=== PATIENT | male | born 1940 | race Caucasian/White ===

== ENCOUNTER 2023-02-19 22:30 | Emergency (ER) | payer MEDICARE, OTHER ==
[~2023-02-19] VITALS: Ht 180.3 cm; Wt 86.2 kg
[2023-02-19 23:55] LABS: BASOPHILS # (AUTO) 0.1 K/uL (0.0-0.2); BASOPHILS % (AUTO) 0.9 % (0.0-2.0); EOSINOPHILS # (AUTO) 0.3 K/uL (0.0-0.7); EOSINOPHILS % (AUTO) 5.4 % (0.0-6.0); HEMATOCRIT 34 % (39-51); HEMOGLOBIN 11.4 g/dL (13.5-17.5); LYMPHOCYTES # (AUTO) 0.9 K/uL (0.8-4.8); LYMPHOCYTES % (AUTO) 14.6 % (20.0-44.0); MEAN CORPUSCULAR HEMOGLOBIN 31 PG (26.0-33.0); MEAN CORPUSCULAR HGB CONC 33 g/dl (31.0-36.0); MEAN CORPUSCULAR VOLUME 94 fL (80-96); MONOCYTES # (AUTO) 0.7 K/uL (0.1-1.30); MONOCYTES % (AUTO) 10.7 % (2.0-12.0); NEUTROPHILS # (AUTO) 4.4 K/uL (1.8-8.9); NEUTROPHILS % (AUTO) 68.4 % (43.0-81.0); PLATELET COUNT (AUTO) 169 K/uL (150-450); RED BLOOD CELL COUNT(AUTO) 3.64 MIL/uL (4.5-6.0); RED CELL DISTRIBUTION WIDTH 13.5 % (11.5-15.0); WHITE BLOOD COUNT (AUTO) 6.4 K/uL (4.3-11.0)
[2023-02-20 00:07] LABS: CALCIUM, SERUM 9.1 mg/dL (8.5-10.1); CARBON DIOXIDE 32 mmol/L (21-32); CHLORIDE 102 mmol/L (98-107); CREATININE 1.5 mg/dL (0.6-1.3); GLUCOSE 148 mg/dL (74-106); SODIUM SERUM 139 mmol/L (136-145); UREA NITROGEN, BLOOD 25 mg/dL (7-18)
[2023-02-20 00:27] LABS: ALANINE AMINOTRANSFERASE 28 U/L (12-78); ALBUMIN 3.1 g/dL (3.4-5.0); ALKALINE PHOSPHATASE 95 U/L (46-116); ASPARTATE AMINOTRANSFERASE 37 U/L (15-37); BILIRUBIN,DIRECT 0.2 mg/dL (0.0-0.2); BILIRUBIN,TOTAL 0.6 mg/dL (0.2-1.0); TOTAL PROTEIN, SERUM 6.9 g/dL (6.4-8.2)
[2023-02-20 02:02] LABS: APPEARANCE,URINE CLEAR (CLEAR); BILIRUBIN,URINE NEGATIVE (NEGATIVE); BLOOD, URINE NEGATIVE Ery/uL (NEGATIVE); COLOR,URINE YELLOW (YELLOW); KETONES,URINE NEGATIVE (NEGATIVE); LEUKOCYTE ESTERASE ,URINE NEGATIVE (NEGATIVE); NITRITE, URINE NEGATIVE (NEGATIVE); PH,URINE 5.5 (5.0-8.0); PROTEIN,URINE NEGATIVE (NEGATIVE); UGLUCOSE NEGATIVE (NEGATIVE); UROBILINOGEN,URINE 0.2 EU/dL (0.2)
[2023-02-20 03:13] VITALS: BP 95/69; TEMP 97.8; O2SAT 94
[2023-02-21] MEDS ORDERED: PANT40TA49 PO (10:57)
[2023-02-21] MEDS ORDERED: ACET-2605 PO (10:57)
[2023-02-21] MEDS ORDERED: METF-440 PO (10:57)
[2023-02-21] MEDS ORDERED: FERR325T24 PO (10:57)
[2023-02-21] MEDS ORDERED: PREG300C PO (10:57)
[2023-02-21] MEDS ORDERED: FURO-144 PO (10:57)
[2023-02-21] MEDS ORDERED: ROSU5TAB PO (10:57)
[2023-02-21] MEDS ORDERED: METH10TA2 PO (10:57)
[2023-02-21] MEDS ORDERED: CYAN500T64 PO (10:57)
[2023-02-21] MEDS ORDERED: POTA20TA10 PO (10:57)
[2023-02-21] MEDS ORDERED: LISI2.5T2 PO (10:57)
[2023-02-21] MEDS ORDERED: LIDO30AD10 TD (10:57)
[2023-02-21] MEDS ORDERED: ZOLP5TAB2 PO (10:57)
[2023-02-21] MEDS ORDERED: CHOL200074 PO (10:57)
[2023-02-21] MEDS ORDERED: TAMS-12 PO (10:57)
[2023-02-21] MEDS ORDERED: DULO60CA45 PO (10:57)
== END 2023-02-20 03:18 | disposition home or self-care (01) ==
LOC: ER 22:45
DX: R29.6 Repeated falls (principal); I10 Essential (primary) hypertension; K21.9 Gastro-esophageal reflux disease without esophagitis; E11.9 Type 2 diabetes mellitus without complications; Z88.2 Allergy status to sulfonamides; Z88.8 Allergy status to other drugs, medicaments and biological substances
CPT/HCPCS: 36415; 70450-TC; 71045-TC; 72125-TC; 80048-TC; 80076-TC; 84484-TC; 85025-TC

== ENCOUNTER 2023-02-21 09:55 | Inpatient (IN) | payer MEDICARE, OTHER ==
[~2023-02-21] VITALS: Ht 180.3 cm; Wt 83.7 kg
[2023-02-21 10:54] LABS: BASOPHILS # (AUTO) 0.1 K/uL (0.0-0.2); BASOPHILS % (AUTO) 0.7 % (0.0-2.0); EOSINOPHILS # (AUTO) 0.3 K/uL (0.0-0.7); EOSINOPHILS % (AUTO) 3.5 % (0.0-6.0); HEMATOCRIT 36 % (39-51); HEMOGLOBIN 12.1 g/dL (13.5-17.5); LYMPHOCYTES % (AUTO) 12.5 % (20.0-44.0); MEAN CORPUSCULAR HEMOGLOBIN 31 PG (26.0-33.0); MEAN CORPUSCULAR HGB CONC 34 g/dl (31.0-36.0); MEAN CORPUSCULAR VOLUME 92 fL (80-96); MONOCYTES # (AUTO) 0.8 K/uL (0.1-1.30); MONOCYTES % (AUTO) 10.8 % (2.0-12.0); NEUTROPHILS # (AUTO) 5.6 K/uL (1.8-8.9); NEUTROPHILS % (AUTO) 72.5 % (43.0-81.0); PLATELET COUNT (AUTO) 170 K/uL (150-450); RED BLOOD CELL COUNT(AUTO) 3.89 MIL/uL (4.5-6.0); RED CELL DISTRIBUTION WIDTH 13.1 % (11.5-15.0); WHITE BLOOD COUNT (AUTO) 7.8 K/uL (4.3-11.0)
[2023-02-21] MEDS ORDERED: CYAN500T64 PO (10:57)
[2023-02-21] MEDS ORDERED: TAMS-12 PO (10:57)
[2023-02-21] MEDS ORDERED: CHOL200074 PO (10:57)
[2023-02-21] MEDS ORDERED: POTA20TA10 PO (10:57)
[2023-02-21] MEDS ORDERED: METF-440 PO (10:57)
[2023-02-21] MEDS ORDERED: PREG300C PO (10:57)
[2023-02-21] MEDS ORDERED: FURO-144 PO (10:57)
[2023-02-21] MEDS ORDERED: PANT40TA49 PO (10:57)
[2023-02-21] MEDS ORDERED: ACET-2605 PO (10:57)
[2023-02-21] MEDS ORDERED: LISI2.5T2 PO (10:57)
[2023-02-21] MEDS ORDERED: ZOLP5TAB2 PO (10:57)
[2023-02-21] MEDS ORDERED: LIDO30AD10 TD (10:57)
[2023-02-21] MEDS ORDERED: DULO60CA45 PO (10:57)
[2023-02-21] MEDS ORDERED: FERR325T24 PO (10:57)
[2023-02-21] MEDS ORDERED: ROSU5TAB PO (10:57)
[2023-02-21] MEDS ORDERED: METH10TA2 PO (10:57)
[2023-02-21 11:13] LABS: INR 1.14 (0.91-1.10); PARTIAL THROMBOPLASTIN TIME 31.5 SEC (24.3-34.3); PROTHROMBIN TIME 11.9 SECS (9.2-11.1)
[2023-02-21 11:14] LABS: ALANINE AMINOTRANSFERASE 28 U/L (12-78); ALBUMIN 3.3 g/dL (3.4-5.0); ALKALINE PHOSPHATASE 104 U/L (46-116); ASPARTATE AMINOTRANSFERASE 32 U/L (15-37); BILIRUBIN,DIRECT 0.2 mg/dL (0.0-0.2); BILIRUBIN,TOTAL 0.7 mg/dL (0.2-1.0); CALCIUM, SERUM 9.7 mg/dL (8.5-10.1); CARBON DIOXIDE 32 mmol/L (21-32); CHLORIDE 100 mmol/L (98-107); CREATININE 1.3 mg/dL (0.6-1.3); GLUCOSE 158 mg/dL (74-106); SODIUM SERUM 140 mmol/L (136-145); TOTAL PROTEIN, SERUM 7.4 g/dL (6.4-8.2); UREA NITROGEN, BLOOD 18 mg/dL (7-18)
[2023-02-21 13:16] LABS: APPEARANCE,URINE CLEAR (CLEAR); BILIRUBIN,URINE NEGATIVE (NEGATIVE); BLOOD, URINE NEGATIVE Ery/uL (NEGATIVE); COLOR,URINE YELLOW (YELLOW); KETONES,URINE NEGATIVE (NEGATIVE); LEUKOCYTE ESTERASE ,URINE NEGATIVE (NEGATIVE); NITRITE, URINE NEGATIVE (NEGATIVE); PROTEIN,URINE NEGATIVE (NEGATIVE); UGLUCOSE NEGATIVE (NEGATIVE); UROBILINOGEN,URINE 0.2 EU/dL (0.2)
[2023-02-21] MEDS ORDERED: TDAP [DIPH/PERTUSSIS/TET] 0.5 ML VIAL IM ONE ×2 (13:37→14:00)
[2023-02-21] MEDS ORDERED: MAGNESIUM HYDROXIDE 30 ML UDC PO PRN (14:30)
[2023-02-21] MEDS ORDERED: Z GUARD REMEDY 4 OZ OINT TP PRN (14:30)
[2023-02-21] MEDS ORDERED: ZOLPIDEM TARTRATE 5 MG TABLET PO PRN (14:30)
[2023-02-21] MEDS ORDERED: ONDANSETRON HCL/PF 4 MG/2 ML VIAL IVP PRN (14:30)
[2023-02-21] MEDS ORDERED: MAG HYDROX/AL HYDROX/SIMETH 30 ML UDC PO PRN (14:30)
[2023-02-21 16:00] VITALS: BP 144/81; TEMP 98.1; O2SAT 94
[2023-02-21] MEDS: PREGABALIN 100 MG CAPSULE PO SCH (17:57)
[2023-02-21] MEDS: METHADONE HCL 10 MG TABLET PO SCH (17:58)
[2023-02-21 20:00] VITALS: BP 124/74; TEMP 97.9; O2SAT 96
[2023-02-21] MEDS ORDERED: DEXTROSE 50%-WATER 50 ML DISP.SYRIN IV PRN (21:00)
[2023-02-21] MEDS: ZOLPIDEM TARTRATE 5 MG TABLET PO SCH (21:49)
[2023-02-21] MEDS: TAMSULOSIN 0.4 MG CAP.SR.24H PO SCH (21:49)
[2023-02-21] MEDS: BLOOD SUGAR DIAGNOSTIC 1 EACH STRIP IN SCH (21:49)
[2023-02-21] MEDS: INSULIN REGULAR, HUMAN 100 UNIT/ML 3 ML VIAL SQ PRN (21:58)
[2023-02-22] MEDS: ACETAMINOPHEN 325 MG TABLET PO PRN ×2 (05:13→22:08)
[2023-02-22 06:19] LABS: BASOPHILS % (AUTO) 0.4 % (0.0-2.0); EOSINOPHILS # (AUTO) 0.2 K/uL (0.0-0.7); EOSINOPHILS % (AUTO) 2.5 % (0.0-6.0); HEMATOCRIT 39 % (39-51); LYMPHOCYTES # (AUTO) 0.6 K/uL (0.8-4.8); LYMPHOCYTES % (AUTO) 6.2 % (20.0-44.0); MEAN CORPUSCULAR HEMOGLOBIN 31 PG (26.0-33.0); MEAN CORPUSCULAR HGB CONC 34 g/dl (31.0-36.0); MEAN CORPUSCULAR VOLUME 93 fL (80-96); MONOCYTES # (AUTO) 0.8 K/uL (0.1-1.30); MONOCYTES % (AUTO) 8.9 % (2.0-12.0); NEUTROPHILS # (AUTO) 7.6 K/uL (1.8-8.9); PLATELET COUNT (AUTO) 179 K/uL (150-450); RED BLOOD CELL COUNT(AUTO) 4.19 MIL/uL (4.5-6.0); RED CELL DISTRIBUTION WIDTH 13.1 % (11.5-15.0); WHITE BLOOD COUNT (AUTO) 9.3 K/uL (4.3-11.0)
[2023-02-22] MEDS: INSULIN REGULAR, HUMAN 100 UNIT/ML 3 ML VIAL SQ PRN ×4 (06:36→22:11)
[2023-02-22] MEDS: BLOOD SUGAR DIAGNOSTIC 1 EACH STRIP IN SCH ×4 (06:36→22:08)
[2023-02-22 06:51] LABS: CALCIUM, SERUM 9.4 mg/dL (8.5-10.1); CREATININE 1.1 mg/dL (0.6-1.3); MAGNESIUM 1.4 mg/dL (1.8-2.4); PHOSPHORUS 3.5 mg/dL (2.5-4.9); POTASSIUM 3.8 mmol/L (3.5-5.1)
[2023-02-22 08:00] VITALS: BP 149/99; TEMP 98.6; O2SAT 100
[2023-02-22 08:06] LABS: THYROID STIMULATING HORMONE 0.6 uIU/mL (0.358-3.74)
[2023-02-22] MEDS: CHOLECALCIFEROL 1,000 UNIT TABLET (VIT D3) PO SCH (08:17)
[2023-02-22] MEDS: POTASSIUM CHLORIDE 20 MEQ TAB.PRT.SR PO SCH (08:18)
[2023-02-22] MEDS: METHADONE HCL 10 MG TABLET PO SCH ×3 (08:18→16:09)
[2023-02-22] MEDS: FERROUS SULFATE (325 MG) 325 MG/TAB TABLET PO SCH (08:18)
[2023-02-22] MEDS: CYANOCOBALAMIN 500 MCG TABLET PO SCH (08:18)
[2023-02-22] MEDS: PREGABALIN 100 MG CAPSULE PO SCH ×2 (08:18→16:09)
[2023-02-22] MEDS: PANTOPRAZOLE 40 MG TABLET.DR PO SCH (08:18)
[2023-02-22] MEDS: LISINOPRIL (5MG) 5 MG TABLET PO SCH (08:19)
[2023-02-22] MEDS: DULOXETINE HCL 30 MG CAPSULE.DR PO SCH (08:22)
[2023-02-22] MEDS ORDERED: PANTOPRAZOLE 40 MG VIAL IV SCH (09:00)
[2023-02-22] MEDS ORDERED: MAGNESIUM OXIDE 400 MG TABLET PO ONE (12:00)
[2023-02-22 16:00] VITALS: BP 135/79; TEMP 98.6; O2SAT 92
[2023-02-22] MEDS: MUPIROCIN OINT 2% 22 GM TUBE NS SCH (18:31)
[2023-02-22 20:00] VITALS: BP 90/60; TEMP 97.9; O2SAT 96
[2023-02-22] MEDS: ZOLPIDEM TARTRATE 5 MG TABLET PO SCH (22:08)
[2023-02-22] MEDS: TAMSULOSIN 0.4 MG CAP.SR.24H PO SCH (22:09)
[2023-02-23] MEDS: BLOOD SUGAR DIAGNOSTIC 1 EACH STRIP IN SCH ×4 (06:34→22:13)
[2023-02-23] MEDS: INSULIN REGULAR, HUMAN 100 UNIT/ML 3 ML VIAL SQ PRN ×4 (06:34→22:16)
[2023-02-23 07:00] VITALS: BP 126/74; TEMP 98.4; O2SAT 96
[2023-02-23] MEDS ORDERED: MAGNESIUM OXIDE 400 MG TABLET PO ONE ×2 (08:00→10:30)
[2023-02-23] MEDS: MUPIROCIN OINT 2% 22 GM TUBE NS SCH ×2 (08:43→17:22)
[2023-02-23] MEDS: FERROUS SULFATE (325 MG) 325 MG/TAB TABLET PO SCH (08:43)
[2023-02-23] MEDS: CHOLECALCIFEROL 1,000 UNIT TABLET (VIT D3) PO SCH (08:44)
[2023-02-23] MEDS: POTASSIUM CHLORIDE 20 MEQ TAB.PRT.SR PO SCH (08:44)
[2023-02-23] MEDS: METHADONE HCL 10 MG TABLET PO SCH ×3 (08:44→17:21)
[2023-02-23] MEDS: DULOXETINE HCL 30 MG CAPSULE.DR PO SCH (08:44)
[2023-02-23] MEDS: ROSUVASTATIN CALCIUM 5 MG PO SCH (08:44)
[2023-02-23] MEDS: PREGABALIN 100 MG CAPSULE PO SCH ×2 (08:44→17:21)
[2023-02-23] MEDS: PANTOPRAZOLE 40 MG TABLET.DR PO SCH (08:45)
[2023-02-23] MEDS: CYANOCOBALAMIN 500 MCG TABLET PO SCH (08:45)
[2023-02-23] MEDS: LISINOPRIL (5MG) 5 MG TABLET PO SCH (08:45)
[2023-02-23] MEDS: ACETAMINOPHEN 325 MG TABLET PO PRN (11:34)
[2023-02-23 16:00] VITALS: BP 86/64; TEMP 98.2; O2SAT 97
[2023-02-23] MEDS: GLUCERNA SHAKE 237 ML CAN PO SCH (17:21)
[2023-02-23 20:00] VITALS: BP 96/57; TEMP 97.7; O2SAT 92
[2023-02-24] MEDS: ACETAMINOPHEN 325 MG TABLET PO PRN (04:05)
[2023-02-24] MEDS: BLOOD SUGAR DIAGNOSTIC 1 EACH STRIP IN SCH ×4 (06:07→22:01)
[2023-02-24 06:31] LABS: BASOPHILS % (AUTO) 0.3 % (0.0-2.0); EOSINOPHILS # (AUTO) 0.3 K/uL (0.0-0.7); EOSINOPHILS % (AUTO) 3.5 % (0.0-6.0); HEMATOCRIT 34 % (39-51); HEMOGLOBIN 11.3 g/dL (13.5-17.5); LYMPHOCYTES # (AUTO) 0.8 K/uL (0.8-4.8); LYMPHOCYTES % (AUTO) 9.4 % (20.0-44.0); MEAN CORPUSCULAR HEMOGLOBIN 31 PG (26.0-33.0); MEAN CORPUSCULAR HGB CONC 33 g/dl (31.0-36.0); MEAN CORPUSCULAR VOLUME 93 fL (80-96); MONOCYTES # (AUTO) 1.2 K/uL (0.1-1.30); MONOCYTES % (AUTO) 13.5 % (2.0-12.0); NEUTROPHILS # (AUTO) 6.4 K/uL (1.8-8.9); NEUTROPHILS % (AUTO) 73.3 % (43.0-81.0); PLATELET COUNT (AUTO) 141 K/uL (150-450); RED BLOOD CELL COUNT(AUTO) 3.66 MIL/uL (4.5-6.0); RED CELL DISTRIBUTION WIDTH 13.1 % (11.5-15.0); WHITE BLOOD COUNT (AUTO) 8.7 K/uL (4.3-11.0)
[2023-02-24 06:36] LABS: MAGNESIUM 1.7 mg/dL (1.8-2.4); PHOSPHORUS 3.2 mg/dL (2.5-4.9); POTASSIUM 3.8 mmol/L (3.5-5.1)
[2023-02-24 08:00] VITALS: BP 135/82; TEMP 98; O2SAT 94
[2023-02-24] MEDS: GLUCERNA SHAKE 237 ML CAN PO SCH ×2 (08:27→18:23)
[2023-02-24] MEDS: DULOXETINE HCL 30 MG CAPSULE.DR PO SCH (08:41)
[2023-02-24] MEDS: CHOLECALCIFEROL 1,000 UNIT TABLET (VIT D3) PO SCH (08:41)
[2023-02-24] MEDS: CYANOCOBALAMIN 500 MCG TABLET PO SCH (08:41)
[2023-02-24] MEDS: TAMSULOSIN 0.4 MG CAP.SR.24H PO SCH (08:42)
[2023-02-24] MEDS: PREGABALIN 100 MG CAPSULE PO SCH ×3 (08:42→22:02)
[2023-02-24] MEDS: PANTOPRAZOLE 40 MG TABLET.DR PO SCH (08:42)
[2023-02-24] MEDS: METHADONE HCL 10 MG TABLET PO SCH ×3 (08:43→18:30)
[2023-02-24] MEDS: POTASSIUM CHLORIDE 20 MEQ TAB.PRT.SR PO SCH (08:43)
[2023-02-24] MEDS: LISINOPRIL (5MG) 5 MG TABLET PO SCH (08:44)
[2023-02-24] MEDS: FERROUS SULFATE (325 MG) 325 MG/TAB TABLET PO SCH (08:44)
[2023-02-24] MEDS: ROSUVASTATIN CALCIUM 5 MG PO SCH (08:46)
[2023-02-24] MEDS: MUPIROCIN OINT 2% 22 GM TUBE NS SCH ×2 (10:51→16:18)
[2023-02-24] MEDS ORDERED: MAGNESIUM OXIDE 400 MG TABLET PO ONE (11:00)
[2023-02-24] MEDS: CLOTRIMAZOLE 1% 15 GM TUBE TP SCH (12:27)
[2023-02-24 16:00] VITALS: BP 96/64; TEMP 98.2; O2SAT 100
[2023-02-24] MEDS ORDERED: CLOTRIMAZOLE 1% 15 GM TUBE TP SCH (17:00)
[2023-02-24 20:30] VITALS: BP 114/99; TEMP 98.2; O2SAT 92
[2023-02-24] MEDS: INSULIN REGULAR, HUMAN 100 UNIT/ML 3 ML VIAL SQ PRN (22:11)
[2023-02-25] MEDS: BLOOD SUGAR DIAGNOSTIC 1 EACH STRIP IN SCH ×4 (06:13→21:32)
[2023-02-25] MEDS: INSULIN REGULAR, HUMAN 100 UNIT/ML 3 ML VIAL SQ PRN ×4 (06:13→21:34)
[2023-02-25] MEDS ORDERED: SILVER NITRATE APPLICATOR 1 EA BOX TP PRN (07:00)
[2023-02-25] MEDS ORDERED: LIDOCAINE 1%-EPI 1:100,000 20 ML VIAL TP ONE (07:00)
[2023-02-25 07:08] LABS: CALCIUM, SERUM 9.5 mg/dL (8.5-10.1); CARBON DIOXIDE 30 mmol/L (21-32); CHLORIDE 101 mmol/L (98-107); GLUCOSE 122 mg/dL (74-106); MAGNESIUM 1.8 mg/dL (1.8-2.4); SODIUM SERUM 136 mmol/L (136-145); UREA NITROGEN, BLOOD 16 mg/dL (7-18)
[2023-02-25 07:09] LABS: BASOPHILS % (AUTO) 0.4 % (0.0-2.0); EOSINOPHILS # (AUTO) 0.2 K/uL (0.0-0.7); HEMATOCRIT 35 % (39-51); HEMOGLOBIN 11.7 g/dL (13.5-17.5); LYMPHOCYTES # (AUTO) 0.7 K/uL (0.8-4.8); LYMPHOCYTES % (AUTO) 8.4 % (20.0-44.0); MEAN CORPUSCULAR HEMOGLOBIN 31 PG (26.0-33.0); MEAN CORPUSCULAR HGB CONC 34 g/dl (31.0-36.0); MEAN CORPUSCULAR VOLUME 93 fL (80-96); MONOCYTES # (AUTO) 1.3 K/uL (0.1-1.30); MONOCYTES % (AUTO) 14.3 % (2.0-12.0); NEUTROPHILS # (AUTO) 6.6 K/uL (1.8-8.9); NEUTROPHILS % (AUTO) 74.9 % (43.0-81.0); PLATELET COUNT (AUTO) 159 K/uL (150-450); RED BLOOD CELL COUNT(AUTO) 3.75 MIL/uL (4.5-6.0); RED CELL DISTRIBUTION WIDTH 13.1 % (11.5-15.0); WHITE BLOOD COUNT (AUTO) 8.8 K/uL (4.3-11.0)
[2023-02-25 07:30] VITALS: BP 125/85; TEMP 97.9; O2SAT 92
[2023-02-25] MEDS: ROSUVASTATIN CALCIUM 5 MG PO SCH (08:42)
[2023-02-25] MEDS: TAMSULOSIN 0.4 MG CAP.SR.24H PO SCH (08:43)
[2023-02-25] MEDS: CYANOCOBALAMIN 500 MCG TABLET PO SCH (08:43)
[2023-02-25] MEDS: CHOLECALCIFEROL 1,000 UNIT TABLET (VIT D3) PO SCH (08:43)
[2023-02-25] MEDS: FERROUS SULFATE (325 MG) 325 MG/TAB TABLET PO SCH (08:43)
[2023-02-25] MEDS: POTASSIUM CHLORIDE 20 MEQ TAB.PRT.SR PO SCH (08:43)
[2023-02-25] MEDS: PANTOPRAZOLE 40 MG TABLET.DR PO SCH (08:43)
[2023-02-25] MEDS: PREGABALIN 25 MG CAPSULE PO SCH ×2 (08:44→17:35)
[2023-02-25] MEDS: DULOXETINE HCL 30 MG CAPSULE.DR PO SCH (08:45)
[2023-02-25] MEDS: METHADONE HCL 10 MG TABLET PO SCH ×3 (08:45→17:35)
[2023-02-25] MEDS: LISINOPRIL (5MG) 5 MG TABLET PO SCH (08:46)
[2023-02-25] MEDS: CLOTRIMAZOLE 1% 15 GM TUBE TP SCH ×2 (08:46→17:36)
[2023-02-25] MEDS: MUPIROCIN OINT 2% 22 GM TUBE NS SCH ×2 (08:47→17:37)
[2023-02-25] MEDS: GLUCERNA SHAKE 237 ML CAN PO SCH ×2 (08:48→17:35)
[2023-02-25] MEDS ORDERED: LORAZEPAM INJ 2 MG/ML VIAL IV ONE (10:25)
[2023-02-25] MEDS ORDERED: IOHEXOL-350 100 ML VIAL IV ONE (10:49)
[2023-02-25] MEDS ORDERED: IV NS 0.9% 250 ML IV ONE (10:49)
[2023-02-25 16:00] VITALS: BP 104/62; TEMP 98.2; O2SAT 96
[2023-02-25 21:57] VITALS: BP 104/74; TEMP 98.2; O2SAT 95
[2023-02-25] MEDS: PREGABALIN 100 MG CAPSULE PO SCH (22:28)
[2023-02-26 06:19] LABS: BASOPHILS % (AUTO) 0.4 % (0.0-2.0); EOSINOPHILS # (AUTO) 0.3 K/uL (0.0-0.7); EOSINOPHILS % (AUTO) 3.5 % (0.0-6.0); HEMATOCRIT 33 % (39-51); LYMPHOCYTES # (AUTO) 0.7 K/uL (0.8-4.8); LYMPHOCYTES % (AUTO) 8.8 % (20.0-44.0); MEAN CORPUSCULAR HEMOGLOBIN 31 PG (26.0-33.0); MEAN CORPUSCULAR HGB CONC 33 g/dl (31.0-36.0); MEAN CORPUSCULAR VOLUME 94 fL (80-96); MONOCYTES % (AUTO) 13.1 % (2.0-12.0); NEUTROPHILS # (AUTO) 5.6 K/uL (1.8-8.9); NEUTROPHILS % (AUTO) 74.2 % (43.0-81.0); PLATELET COUNT (AUTO) 152 K/uL (150-450); RED BLOOD CELL COUNT(AUTO) 3.58 MIL/uL (4.5-6.0); RED CELL DISTRIBUTION WIDTH 13.4 % (11.5-15.0); WHITE BLOOD COUNT (AUTO) 7.5 K/uL (4.3-11.0)
[2023-02-26] MEDS: BLOOD SUGAR DIAGNOSTIC 1 EACH STRIP IN SCH ×4 (06:35→21:41)
[2023-02-26 06:39] LABS: CARBON DIOXIDE 29 mmol/L (21-32); CHLORIDE 102 mmol/L (98-107); GLUCOSE 132 mg/dL (74-106); POTASSIUM 3.9 mmol/L (3.5-5.1); SODIUM SERUM 137 mmol/L (136-145); UREA NITROGEN, BLOOD 15 mg/dL (7-18)
[2023-02-26] MEDS: PREGABALIN 25 MG CAPSULE PO SCH (06:42)
[2023-02-26] MEDS: INSULIN REGULAR, HUMAN 100 UNIT/ML 3 ML VIAL SQ PRN ×4 (06:48→21:44)
[2023-02-26 07:30] VITALS: BP 120/80; TEMP 99.1; O2SAT 93
[2023-02-26] MEDS: GLUCERNA SHAKE 237 ML CAN PO SCH ×2 (08:13→17:18)
[2023-02-26] MEDS: DULOXETINE HCL 30 MG CAPSULE.DR PO SCH (08:14)
[2023-02-26] MEDS: ROSUVASTATIN CALCIUM 5 MG PO SCH (08:14)
[2023-02-26] MEDS: PANTOPRAZOLE 40 MG TABLET.DR PO SCH (08:14)
[2023-02-26] MEDS: POTASSIUM CHLORIDE 20 MEQ TAB.PRT.SR PO SCH (08:14)
[2023-02-26] MEDS: CYANOCOBALAMIN 500 MCG TABLET PO SCH (08:14)
[2023-02-26] MEDS: FERROUS SULFATE (325 MG) 325 MG/TAB TABLET PO SCH (08:14)
[2023-02-26] MEDS: CHOLECALCIFEROL 1,000 UNIT TABLET (VIT D3) PO SCH (08:14)
[2023-02-26] MEDS: LISINOPRIL (5MG) 5 MG TABLET PO SCH (08:15)
[2023-02-26] MEDS: METHADONE HCL 10 MG TABLET PO SCH ×2 (08:15→12:13)
[2023-02-26] MEDS: TAMSULOSIN 0.4 MG CAP.SR.24H PO SCH (08:16)
[2023-02-26] MEDS: MUPIROCIN OINT 2% 22 GM TUBE NS SCH ×2 (08:23→16:38)
[2023-02-26] MEDS: CLOTRIMAZOLE 1% 15 GM TUBE TP SCH ×2 (08:23→16:38)
[2023-02-26] MEDS: ACETAMINOPHEN 325 MG TABLET PO PRN (12:13)
[2023-02-26] MEDS ORDERED: TRAMADOL HCL 50 MG TABLET PO PRN (13:30)
[2023-02-26 16:00] VITALS: BP 136/97; TEMP 98.1; O2SAT 94
[2023-02-26 20:00] VITALS: BP 141/86; TEMP 98.4; O2SAT 95
[2023-02-26] MEDS: PREGABALIN 100 MG CAPSULE PO SCH (21:22)
[2023-02-27] MEDS: BLOOD SUGAR DIAGNOSTIC 1 EACH STRIP IN SCH ×3 (06:30→16:56)
[2023-02-27] MEDS: INSULIN REGULAR, HUMAN 100 UNIT/ML 3 ML VIAL SQ PRN ×3 (06:33→16:57)
[2023-02-27 08:00] VITALS: BP 131/107; TEMP 97.7; O2SAT 95
[2023-02-27] MEDS: GLUCERNA SHAKE 237 ML CAN PO SCH ×2 (08:49→16:55)
[2023-02-27] MEDS: CHOLECALCIFEROL 1,000 UNIT TABLET (VIT D3) PO SCH (08:50)
[2023-02-27] MEDS: POTASSIUM CHLORIDE 20 MEQ TAB.PRT.SR PO SCH (08:51)
[2023-02-27] MEDS: LISINOPRIL (5MG) 5 MG TABLET PO SCH (08:51)
[2023-02-27] MEDS: FERROUS SULFATE (325 MG) 325 MG/TAB TABLET PO SCH (08:51)
[2023-02-27] MEDS: DULOXETINE HCL 30 MG CAPSULE.DR PO SCH (08:51)
[2023-02-27] MEDS: CYANOCOBALAMIN 500 MCG TABLET PO SCH (08:51)
[2023-02-27] MEDS: PANTOPRAZOLE 40 MG TABLET.DR PO SCH (08:51)
[2023-02-27] MEDS: METHADONE HCL 10 MG TABLET PO SCH ×2 (08:51→16:55)
[2023-02-27] MEDS: MUPIROCIN OINT 2% 22 GM TUBE NS SCH ×2 (08:52→16:56)
[2023-02-27] MEDS: CLOTRIMAZOLE 1% 15 GM TUBE TP SCH ×2 (08:52→16:56)
[2023-02-27] MEDS: ROSUVASTATIN CALCIUM 5 MG PO SCH (08:52)
[2023-02-27] MEDS: TAMSULOSIN 0.4 MG CAP.SR.24H PO SCH (08:52)
[2023-02-27] MEDS ORDERED: ASPIRIN 81 MG TAB.CHEW PO SCH (09:00)
[2023-02-27] MEDS ORDERED: PREGABALIN 25 MG CAPSULE PO SCH (09:00)
[2023-02-27] MEDS ORDERED: NUT.237L45 PO (12:40)
[2023-02-27] MEDS ORDERED: ASPI-1169 PO (12:40)
[2023-02-27] MEDS ORDERED: PREG100C PO (12:40)
[2023-02-27] MEDS ORDERED: Tamsulosin PO (12:40)
[2023-02-27] MEDS ORDERED: CLOT15CR35 TP (12:40)
[2023-02-27] MEDS ORDERED: ACET325T53 PO (12:40)
[2023-02-27] MEDS ORDERED: PREG25CA PO (12:40)
[2023-02-27] MEDS ORDERED: SILV100S2 TP (12:40)
[2023-02-27] MEDS ORDERED: TRAM50TA2 PO (12:40)
[2023-02-27] MEDS ORDERED: MUPI22OI7 NS (12:40)
[2023-02-27] MEDS ORDERED: ZOLP5TAB8 PO (12:40)
[2023-02-27] MEDS ORDERED: METH10TA2 PO (12:40)
[2023-02-27 16:00] VITALS: BP 130/83; TEMP 97.5; TEMP 97.9; O2SAT 95
[2023-02-27] MEDS: ACETAMINOPHEN 325 MG TABLET PO PRN (18:09)
== END 2023-02-27 20:40 | DRG 74 ==
LOC: ER 10:00 → MED 13:28
PROVIDERS: ADMIT Nurse Practitioner Acute Care; ATTEND Nurse Practitioner Acute Care
PROC: 0JB00ZX Excision of Scalp Subcutaneous Tissue and Fascia, Open Approach, Diagnostic (ICD-10-PCS; principal; 2023-02-26)
DX: E11.42 Type 2 diabetes mellitus with diabetic polyneuropathy (principal); E44.1 Mild protein-calorie malnutrition; M50.33 Other cervical disc degeneration, cervicothoracic region; R29.6 Repeated falls; I10 Essential (primary) hypertension; E88.09 Other disorders of plasma-protein metabolism, not elsewhere classified; Z88.2 Allergy status to sulfonamides; Z99.3 Dependence on wheelchair; M48.03 Spinal stenosis, cervicothoracic region; Z79.82 Long term (current) use of aspirin; N40.0 Benign prostatic hyperplasia without lower urinary tract symptoms; Z79.84 Long term (current) use of oral hypoglycemic drugs; Z79.891 Long term (current) use of opiate analgesic; W07.XXXA Fall from chair, initial encounter; Y93.9 Activity, unspecified; Y92.89 Other specified places as the place of occurrence of the external cause; L30.4 Erythema intertrigo; Z22.322 Carrier or suspected carrier of Methicillin resistant Staphylococcus aureus; L98.8 Other specified disorders of the skin and subcutaneous tissue; I65.23 Occlusion and stenosis of bilateral carotid arteries; Z66 Do not resuscitate; R53.1 Weakness; R22.0 Localized swelling, mass and lump, head; Z68.25 Body mass index [BMI] 25.0-25.9, adult; L73.9 Follicular disorder, unspecified
CPT/HCPCS: 36415; 70450-TC; 70496-TC; 70498-TC; 72125-TC; 80048-TC; 80061-TC; 80076-TC; 82962-TC; 83735-TC; 84100-TC; 84443-TC; 84484-TC; 85025-TC; 85730-TC; 87081-TC; 88305-TC; 88312-TC; 90715; 93307-TC; 97110-TC; 97112-TC; 97116-TC; 97530-TC; 97535-TC; A4349; G0378; J1815; J2060; J3490; J7050; Q9967